=== PATIENT | female | born 1940 | race Caucasian/White ===

== ENCOUNTER 2016-10-05 06:40 | Day surgery (SDC) | payer MEDICARE, OTHER ==
[~2016-10-05] VITALS: Ht 165.1 cm; Wt 61.1 kg
[2016-10-05] VITALS (8 sets, daily range): BP systolic 108–174; BP diastolic 55–98; PULSE 59–81; RESP 10–21; O2SAT 95–100
[~2016-10-05 06:40] MED LIST: CeFAZolin 2 Gm/50 mL D5W IV Premix IV ONE; LEVO137T2 PO; QUIN324C4 PO
[2016-10-05] MEDS ORDERED: Propofol 10,000 mCg/mL 20 mL Inj ONE (06:41)
[2016-10-05] MEDS ORDERED: Dexamethasone 4 mg/mL Inj ONE (06:41)
[2016-10-05] MEDS ORDERED: EPHEDrine/NS 5 mg/mL 5 mL Syringe ONE (06:41)
[2016-10-05] MEDS ORDERED: Lidocaine PF 1% 30 mL Inj ONE (06:41)
[2016-10-05] MEDS ORDERED: Rocuronium 10 mg/mL 5 mL Inj ONE (06:41)
[2016-10-05] MEDS ORDERED: Glycopyrrolate 0.2 MG/ML 1mL Inj ONE (06:41)
[2016-10-05] MEDS ORDERED: fentaNYL-PF 50 mCg/mL 2 mL Inj ONE (06:41)
[2016-10-05] MEDS ORDERED: Phenylephrine/NS 100 mCg/mL 10 mL Syringe IVPUSH ONE (06:41)
[2016-10-05] MEDS ORDERED: MetoCLOpramide 5 mg/mL 2 mL Inj ONE (06:41)
[2016-10-05] MEDS ORDERED: CeFAZolin Inj 2 gm / 50mL D5W IV ONE (06:44)
[2016-10-05] MEDS: Lactated Ringer's 1,000 ML IV SCH ×2 (06:50→08:29)
[2016-10-05] MEDS ORDERED: Lactated Ringer's 500 ML IV PRN (07:34)
[2016-10-05] MEDS ORDERED: Lactated Ringer's 1,000 ML IV SCH (07:34)
[2016-10-05] MEDS ORDERED: Atropine 0.4 mg/mL Inj IVPUSH PRN (07:35)
[2016-10-05] MEDS ORDERED: HYDROmorphone 1 mg/mL Inj IVPUSH PRN (07:35)
[2016-10-05] MEDS ORDERED: Phenylephrine 10,000 mCg/mL Inj IVPUSH PRN (07:35)
[2016-10-05] MEDS ORDERED: Ondansetron 2 mg/mL 2 mL Inj IVPUSH PRN (07:35)
[2016-10-05] MEDS ORDERED: Labetalol 5 mg/mL 4 mL Inj IV PRN (07:35)
[2016-10-05] MEDS ORDERED: fentaNYL-PF 50 mCg/mL 2 mL Inj IVPUSH PRN (07:35)
[2016-10-05] MEDS ORDERED: EPHEDrine Sulfate 50 mg/mL Inj IVPUSH PRN (07:35)
[2016-10-05] MEDS ORDERED: Dexamethasone 4 mg/mL Inj IVPUSH PRN (07:35)
[2016-10-05] MEDS ORDERED: MetoCLOpramide 5 mg/mL 2 mL Inj IVPUSH PRN (07:35)
[2016-10-05] MEDS ORDERED: hydrALAZINE 20 mg/mL Inj IVPUSH PRN (07:35)
--- NOTE | 2016-10-05 08:12 | PCM.HPANE ---
Patient Data Date of Service: Oct 05, 2016 Surgeon Admitting Provider: Attending Provider:Virgil Horner MD Primary Care Physician:Hetal Langley Other Provider:Quan Pacheco Anesthesia Reason for Visit Bilateral Groin Hernia Ht/WT & BMI Height (Feet): 5 Height (Inches): 5 Weight (Kilograms): 61.1 Body Mass Index 22.00 Allergies Coded Allergies: No Known Allergies (Verified , 10/03/16) Past Anesthesia History Anesthesia History: Denies:: Anesthesia Reactions, Malignant Hyperthermia Diabetes History Hx Diabetes?: No MRSA MRSA: No Medications Home Meds Incl Beta Natacha: No Reported Medications Levothyroxine 137 Mcg [id number] Mcg PO DAILY Ref 0 10/03/16 Quinine Sulfate 324 Mg [id number] Mg PO HS PRN LEG CRAMPS Ref 0 10/03/16 History History of ENT Problems?: Yes HEENT History: Positive for:: Sinus Problem (ALLERGIC RHINITIS) Denies:: Cataracts (C/OF DRY EYES) Denture Type: Full- Upper Teeth Condition: Within Normal Limits No Teeth Hx of Heart Problems?: No Cardiovascular History: Denies:: Heart Murmur Hypertension Hx of Respiratory Problem?: Yes Respiratory History: Denies:: Use of C-PAP Machine (SNORES) Hx Neurologic Problems?: No Hx of GI Problems?: Yes Other GI Pertinent History: S/P ABDONMINOPLASTY B/L FEMORAL GROIN HERNIAS=CURRENT PROBLEM Hx of Problems?: Yes Genitourinary History: Positive for:: Urinary Tract Infection (HX OF) Female Hx: Positive for:: Problems with Breasts? (S/P B/L BREAST BX'S, MASTECTOMY FOR CA) Denies:: Currently Skin History: Denies:: History Skin Disorders? Pressure Ulcers Hx Musculoskeletal Problems?: No Hx of Psycho/Social Problems?: No Hx Surgeries?: Yes (B/L BREAST BX'S/MASTECTOMY,HYST,ABDOMINOPLASTY, THYROIDECTOMY) Hx Any Other Health Problems?: Yes Other History: Positive for:: Cancer (B/L BREASTS) Hospitalization Thyroid Disease (S/P THYROIDECTOMY) Denies:: Endocrine Disease Hx Diabetes: No Hx Alcohol Use: YesAlcoholic Drinks Per Day: 1-2 BEERS/WEEKHave You Smoked inLast 12 mo: No Stop/Bang Treated for Sleep Apnea?: No Do You Have a CPAP Machine?: No S-Snoring: Do You Snore Loudly: Yes T-Tired: feel tired, fatigued: Yes O-Obsered: Observed not breath: Yes P-Blood Pressure: treated: No B- Body Mass Index > 35 kg/m2: No A- Age over 50: Yes N- Neck Large Circumference: No G- Gender Male: No GAIL Total Score: 4 GAIL Risk Assessment: High Risk, =/>3 Yes GAIL Category 4 OutPt Procedure: Yes Risk Assessment Category Category 1A: Patient has history of documented sleep apnea, and HAS NOT received any narcotic, sedative or anesthesia administration during this stay. Category 1B: Patient has history of documented sleep apnea, and HAS received any narcotic , sedative or anesthesia administration during this stay Category 2: Patient has SUSPECTED Obstructive Sleep Apnea, and HAS received any narcotic , sedative or anesthesia administration during this stay. Category 3: Patient has SUSPECTED Obstructive Sleep Apnea and HAS NOT received narcotic, sedative or anesthesia administration during this stay. Category 4: Outpatient in Procedural Areas with known sleep apnea or who screen positive for High Risk via the STOP/BANG questionnaire. Exam Exam Vital Signs Vital Signs Date Time Temp Pulse Resp B/P Pulse Ox O2 Delivery O2 Flow Rate FiO2 10/05/16 07:06 36 64 18 122/55 97 Room Air General Appearance: Alert, Oriented X3, Cooperative HEENT/AIRWAY: MP 2, Neck Movement (OK), Mouth Opening Lungs: Clear to Auscultation, Normal Air Movement Heart: Regular Rate/Rhythm, Normal S1, Normal S2 Meds/Labs/Diagnostics Admission Meds Current Medications Lactated Ringer's (Lr) 1,000 ml @ 120 mls/hr [id number] IV Last administered on t 06:50; Start 10/05/16 at 05:00; Stop 10/05/16 at 13:19 Labs 07/2016 labs reviewed Plan Impression Patient chart reviewed, patient interviewed and anesthestic plan with risks, benefits, and alternatives discussed, and informed consent obtained. NPO per Anesth. Guidelines: Yes ASA Physical Status: ASA2 Mod Systemic Disease Anesthetic Plan: GA Bene/Risks/Altern/Consents: Yes HP Complete Prior to Induction: Yes Deep Valdes MD Oct 05, 2016 07:34
[2016-10-05] MEDS ORDERED: Bupivacaine-MPF 0.25% 30 mL Inj INFILTRATE ONE (08:29)
--- NOTE | 2016-10-05 10:11 | PCM.ANEP1 ---
Post Anesthesia PACU Phase 1 Assessment Date of Service: Oct 05, 2016 Vital Signs Vital Signs Date Time Temp Pulse Resp B/P Pulse Ox O2 Delivery O2 Flow Rate FiO2 10/05/16 10:00 36.1 72 21 142/69 98 Room Air 10/05/16 09:55 81 11 148/69 100 Simple Mask 8 10/05/16 09:50 172/91 10/05/16 09:48 36.4 174/98 10/05/16 07:06 36 64 18 122/55 97 Room Air Anesthetic Administered: GA Level of Alertness: Awake, talking PRADHAN's with Equal Strength: Yes Pain: No Nausea or Vomiting: No CV Function & Hydration Stable: Yes Airway Device: Oxygen Delivery: Room Air Lungs: Normal Air Movement PACU Phase 2 Assessment Complications: No Follow up Care: No Patient Instructions Provided: N/A Deep Valdes MD Oct 05, 2016 10:11
--- NOTE | 2016-10-05 10:29 | OP ---
[address] [address] OPERATIVE REPORT PATIENT: KAVON REAL : 1940 MR#: [id number] ADMIT: 10/05/2016 JOB ID: [id number] DATE OF SURGERY: 10/05/2016 PREOPERATIVE DIAGNOSIS(ES): Bilateral femoral hernias. POSTOPERATIVE DIAGNOSIS(ES): 1. Right femoral hernia. 2. Left direct inguinal hernia. ANESTHESIA: General. OPERATION: Laparoscopic repair of right femoral hernia and left direct inguinal hernia.(TEP ) SURGEON: Virgil Horner MD SPECIAL PROJECTS MANAGER: Sylvester Yanez PA-C (the medical receptionist assistant was required for the safe and timely completion of the case). COMPLICATIONS: None. ESTIMATED BLOOD LOSS: Less than 5 mL. CONDITION: Satisfactory. SPECIMEN: None. FINDINGS: There was right femoral hernia and a left direct inguinal hernia. Both of these were repaired in a total extraperitoneal approach using medium sized sided Bard 3D Max mesh. INDICATION/SIGNIFICANT HISTORY: The patient is a 76-year-old female who developed bilateral groin lumps in 2014. Over time these have increasing in size and symptoms. They cause frequent discomfort. She was referred to me, and I thought she had bilateral femoral hernias. I recommended a laparoscopic repair. OPERATIVE TECHNIQUE: The patient was taken to the operating room and placed in the supine position. General anesthesia was administered and perioperative antibiotics were given. The abdomen and groin were prepped and draped in the standard surgical fashion. A procedure pause was performed. A small infraumbilical incision was made in the previous incision from her abdominoplasty. I then opened the anterior rectus sheath just left of midline and inserted a 10 mm port into the preperitoneal space. Insufflation was delivered. I then bluntly dissected out the preperitoneal space followed by injection of local anesthetic and insertion of two 5 mm ports in the lower midline. There was some scar tissue and a small rent must have been made from somewhere in the peritoneum as pneumoperitoneum then ensued. I therefore elected to make a small pinpoint incision in the left upper quadrant and inserted a Veress needle to release that. Dissection was then begun on the right side. The hernia was relatively easily identified and reduced. The femoral vessels were easily identified as was the round ligament. I swept the peritoneum well away from the pelvic wall in the area of the femoral canal and the inguinal canals. I then turned to the left side. This hernia was more anteriorly located consistent with a direct inguinal hernia. This was fairly easily reduced. The round ligament was taking an unusual course. The patient has a history of hysterectomy. It was such that it would prevent me from having to placing the mesh. I therefore used electrocautery to transect it. I was then able to widely sweep the peritoneum away from the pelvic wall. A piece of left-sided 3D Max mesh was then inserted with good coverage of both the femoral and inguinal spaces. The right-sided mesh was then inserted. The perineum was well away from the edges of the mesh. The insufflation was then released and the peritoneum seemed to billow up over the mass. The ports were then removed. The fascia of the umbilical incision was closed using a single 2-0 PDS suture. Skin was closed using 4-0 Monocryl. The Veress needle was removed. The entire procedure was well tolerated without complication. ASH
== END 2016-10-05 23:59 | disposition home or self-care (01) ==
LOC: SAS 06:40
PROVIDERS: ATTEND General Practice
DX: K41.20 Bilateral femoral hernia, without obstruction or gangrene, not specified as recurrent (principal); K41.90 Unilateral femoral hernia, without obstruction or gangrene, not specified as recurrent; K40.90 Unilateral inguinal hernia, without obstruction or gangrene, not specified as recurrent; E03.9 Hypothyroidism, unspecified; Z85.3 Personal history of malignant neoplasm of breast; Z90.710 Acquired absence of both cervix and uterus
CPT/HCPCS: 49650; 49659; C1781; J0690; J1100; J2370; J2765; J3010; J7120